=== PATIENT | male | born 1970 | race Caucasian/White ===

== ENCOUNTER 2018-02-21 08:37 | Emergency (ER) | payer OTHER ==
[~2018-02-21] VITALS: Ht 188 cm; Wt 104.5 kg
[~2018-02-21 08:37] MED LIST: HYDR-4353 PO
[2018-02-21] MEDS ORDERED: HYDROcodone/acetaminophen 10/325mg tab PO ONE (10:30)
[2018-02-21 11:41] VITALS: BP 111/63
== END 2018-02-21 12:23 | disposition home or self-care (01) ==
LOC: ER 08:38
DX: S80.11XA Contusion of right lower leg, initial encounter (principal); S90.01XA Contusion of right ankle, initial encounter; S90.31XA Contusion of right foot, initial encounter; F17.200 Nicotine dependence, unspecified, uncomplicated; Z88.4 Allergy status to anesthetic agent; X58.XXXA Exposure to other specified factors, initial encounter; Y93.89 Activity, other specified; Y92.89 Other specified places as the place of occurrence of the external cause; Y99.9 Unspecified external cause status
CPT/HCPCS: 73590; 93971; 99284